=== PATIENT | male | born 1940 | race Two or more races ===

== ENCOUNTER 2022-09-16 18:09 | Emergency (ER) | payer OTHER ==
[~2022-09-16] VITALS: Ht 170.2 cm; Wt 70.0 kg
[2022-09-16 19:13] VITALS: BP 141/62
== END 2022-09-16 20:23 | disposition left against medical advice (07) ==
LOC: EDBD 18:09 → ER 18:09
DX: H92.01 Otalgia, right ear (principal); Z53.21 Procedure and treatment not carried out due to patient leaving prior to being seen by health care provider